=== PATIENT | female | born 1950 | race Caucasian/White ===

== ENCOUNTER 2018-05-27 21:45 | Emergency (ER) | payer BC, MEDICARE, OTHER ==
[~2018-05-27] VITALS: Ht 152.4 cm; Wt 49.9 kg
--- NOTE | 2018-05-27 22:00 | NUR ---
Patient ambulated with stable gait. AAOx4. Speech is clear, speaks in complete sentences. No neuro deficits. Patient came in for c/o head injury s/p fall accident at work. Respiratory even and unlabored, no sob, no cough. No cardiovascular distress, all pulses palpable. No GI/ distress noted. Patient in bed at lowest position. Side rails upx2. Call light within reach. Fall precautions implemented per protocol.
--- NOTE | 2018-05-27 22:32 | NUR ---
Patient transported to CT in stable condition.
--- NOTE | 2018-05-28 | NUR ---
Patient discharged to home in stable conditon. Written and verbal after care instructions given. Patient verbalizes understanding of instructions. Patient ambulated with stable gait.
[2018-05-28 00:03] VITALS: BP 130/70
== END 2018-05-28 00:04 | disposition home or self-care (01) ==
LOC: ER 21:47
DX: S13.4XXA Sprain of ligaments of cervical spine, initial encounter (principal); S30.0XXA Contusion of lower back and pelvis, initial encounter; S09.90XA Unspecified injury of head, initial encounter; Z88.2 Allergy status to sulfonamides; W10.9XXA Fall (on) (from) unspecified stairs and steps, initial encounter; Y93.89 Activity, other specified; Y92.89 Other specified places as the place of occurrence of the external cause; Y99.8 Other external cause status
CPT/HCPCS: 70450; 72125; 72170; A4663